=== PATIENT | male | born 1950 | race Caucasian/White ===

== ENCOUNTER 2022-07-18 09:42 | Observation (INO) | payer BC, SELFPAY ==
[2022-07-18] VITALS (12 sets, daily range): BP systolic 107–138; BP diastolic 53–77; PULSE 63–112; RESP 16–18; TEMP 36.2–37.1; O2SAT 97–99; BMI 31.2
--- NOTE | ~2022-07-18 | US_ITS ---
EXAMINATION: US abdomen limited DATE: 07/18/2022 17:09 INDICATION: Cirrhosis and elevated lipase TECHNIQUE: Multiple grayscale and Doppler ultrasound images of the abdomen were obtained. COMPARISON: CT dated 07/18/2022 FINDINGS: The pancreatic head and body are normal in appearance. The pancreatic tail is not visualized. There is increased hepatic parenchymal echogenicity and coarsened echotexture consistent with mild diffuse hepatic steatosis. There is subtle liver surface nodularity consistent with cirrhosis. No liver lesio n identified. No intrahepatic biliary duct dilation suspected. Portal venous flow was seen in the he patopetal, normal direction and has normal Doppler waveform. There is dilation of the main portal vei n which measures up to 1.9 cm diameter consistent with portal venous hypertension. There is a small s hadowing stone along the dependent wall of the normal-appearing gallbladder. Sonographic Renteria sign was reported as negative by the die repairer forging.Common bile duct measures 3 mm maximal diameter which is within normal limits. Visualized inferior vena cava is normal. Visualized portion of the right kidney demonstrates normal echogenicity and contour with no hydronephrosis. IMPRESSION: 1. Cirrhosis and mild diffuse hepatic steatosis with portal venous hypertension. 2. Cholelithiasis with no acute cholecystitis or biliary ductal dilation. Reviewed, dictated and finalized at location A. E SPLITTING SUPERVISOR IMPRESSION: 1. Cirrhosis and mild diffuse hepatic steatosis with portal venous hypertension . 2. Cholelithiasis with no acute cholecystitis or biliary ductal dilation.
--- NOTE | ~2022-07-18 | CT_ITS ---
EXAMINATION: CT abdomen pelvis w con INDICATION: Generalized abdominal pain TECHNIQUE: Computed tomographic images of the abdomen and pelvis were obtained after the administrati on of 100 cc of Omnipaque 350 intravenous contrast. The dose-length product (DLP) was 1096.66 mGy-cm. Automated exposure control and iterative reconstruction technique were employed. COMPARISON: None FINDINGS: Minimal dependent atelectasis is present in the lung bases. The heart size is normal. There is nodularity of the liver surface. Punctate calcifications in an otherwise normal spleen likely rep resent healed granulomatous disease. The pancreas and adrenal glands are normal. Stones are present i n the nondistended gallbladder. The right kidney is unremarkable. There are nonobstructing stones of the left kidney measuring up to 5 mm. No pathologically enlarged abdominal or pelvic lymph nodes are identified. No free intraperitoneal gas or evidence of bowel obstruction. The appendix is normal. IMPRESSION: 1. No CT correlate for the patient's symptoms. 2. Cholelithiasis without evidence of cholecystitis. 3. Nonobstructing left nephrolithiasis. 4. Cirrhosis. Reviewed, dictated and finalized at location B. SPLICER
[2022-07-18 10:16] LABS: Basophils Absolute Auto 0.1 K/mm3 (0.0-0.1); Basophils Percent Auto 0.7 % (0.2-1.2); Eosinophils Absolute Auto 0.2 K/mm3 (0-0.3); Eosinophils Percent Auto 2.2 % (0-4.4); Hematocrit 43.2 % (42.0-52.0); Immature Granulocyte Absolute 0.13 K/mm3 (0.00-0.031); Immature Granulocyte Percent A 1.8 % (0-0.5); Lymphocytes Absolute Auto 1.06 K/mm3 (0.9-3.2); Lymphocytes Percent Auto 14.4 % (18.3-44.2); Mean Corpuscular HGB Conc 34.7 g/dl (32-36); Mean Corpuscular Hemoglobin 29.3 pg (26-34); Mean Corpuscular Volume 84.4 fl (80-100); Mean Platelet Volume 9.2 fl (7.4-10.4); Monocytes Absolute Auto 0.7 K/mm3 (0.1-0.6); Monocytes Percent Auto 9.5 % (2.6-8.5); Neutrophils Absolute Auto 5.3 K/mm3 (1.3-6.7); Neutrophils Percent Auto 71.4 % (45.5-73.1); Platelet Count Result 225 k/mm3 (150-375); Red Blood Count 5.12 M/mm3 (4.6-6.20); Red Cell Distribution Width 13.5 % (11.5-14.5); White Blood Count 7.4 K/mm3 (4.5-10.0)
[2022-07-18] MEDS: SODIUM CHLORIDE 0.9% IV 1,000 ML 999 ML IV CONT (10:28)
[2022-07-18 10:29] LABS: INR 1.3; Prothrombin Time 15.8 Seconds (11.1-14.7)
[2022-07-18 10:30] LABS: Partial Thromboplastin Time 43.4 SECONDS (22.3-36.8)
--- NOTE | 2022-07-18 10:33 | ECG_ITS ---
Measurements Intervals [place] Rate: 109 P: -77 [place]: 65 QRS: -58 QRSD: 161 T: 111 QT: 395 QTc: 534 Interpretive Statements ELECTRONIC VENTRICULAR PACEMAKER ABNORMAL RHYTHM ECG NO PREVIOUS ECG AVAILABLE FOR COMPARISON Electronically Signed On 07-18-2022 16:15:14 COMMUNITY SERVICE AIDE by Mary Ho M.D.
--- NOTE | 2022-07-18 10:33 | ED.GENADULT ---
HPI - General Adult General Chief complaint: Nausea/Vomiting/Diarrhea Stated complaint: Diarrhea x1 week Time Seen by Provider: 07/18/22 09:50 Source: RN notes reviewed History of Present Illness HPI narrative: Patient presents emergency room from home for diarrhea. Patient states symptoms began approximately 1 week ago. She has been having numerous episodes of diarrhea a day. States that diarrhea will be associated with abdominal cramping but denies any abdominal pain at this time he does note mild associated nausea that is intermittent he also states has been having dizziness is worse when he tries to get up and ambulate states that he will feel dizzy and feel like he may pass out but states he has not fully passed out he denies having fevers or chills chest pain shortness of breath numbness or tingling of the extremities unilateral weakness or any other symptoms Related Data Home Medications Medication Instructions Recorded Confirmed amlodipine 5 mg tablet 5 mg PO DAILY 07/31/19 05/02/22 celecoxib 200 mg capsule 200 mg PO DAILY 07/31/19 05/02/22 empagliflozin 25 mg tablet 25 mg PO DAILY 07/31/19 05/02/22 (Jardiance) nebivolol 5 mg tablet (Bystolic) 5 mg PO DAILY 07/31/19 05/02/22 olmesartan 20 mg tablet 20 mg PO DAILY 07/31/19 05/02/22 omeprazole 20 mg capsule,delayed 20 mg PO DAILY 07/31/19 05/02/22 release pravastatin 80 mg tablet 80 mg PO DAILY 07/31/19 05/02/22 sertraline 50 mg tablet 50 mg PO DAILY 07/31/19 05/02/22 triamterene 37.5 1 cap PO DAILY 07/31/19 05/02/22 mg-hydrochlorothiazide 25 mg capsule apixaban 2.5 mg tablet (Eliquis) 2.5 mg PO BID 08/26/20 05/02/22 dulaglutide 1.5 mg/0.5 mL 1.5 mg subcut WEEKLY 08/30/21 05/02/22 subcutaneous pen injector (Trulicity) metformin 850 mg tablet 425 mg PO DAILY 08/30/21 05/02/22 Allergies Allergy/AdvReac Type Severity Reaction Status Date / Time latex Allergy Intermediate itch/rash Verified 05/02/22 13:37 Review of Systems Review of Systems: Gen.: Denies fevers or chills Eyes: Denies eye pain or visual change ENT: Denies congestion Respiratory: Denies shortness of breath or cough CV: Denies chest pain GI: See HPI denies burning, urgency, frequency or hematuria Musculoskeletal: Denies back pain or muscle pain Neuro: reports dizziness worse with standing , and syncope Except as documented, all other systems reviewed and negative [facility] Past Medical History Medical History Body mass index (bmi) 33.0-33.9, adult (01/15/19) Chronic pain of right knee NIK (obstructive sleep apnea) Other chronic pain Primary osteoarthritis of right knee Surgical History Surgical History Presence of right artificial knee joint Family History Family History Other Diabetes mellitus Family history of arthritis Hypertension Social History Social History Smoking status: Never smoker Alcohol intake: current Exam Narrative: APPEARANCE: No acute distress, nontoxic, resting in bed EYES: PERRL HEENT: Normocephalic, atraumatic, oral mucosa dry RESPIRATORY: No respiratory distress Clear to auscultation bilaterally with no rhonchi wheezing or rales. CARDIOVASCULAR: Regular rate and rhythm without murmurs rubs or gallops. ABDOMINAL: Soft, nontender, nondistended, no rebound or guarding MUSCULOSKELETAl: Moves all extremities. No clubbing, cyanosis or edema. NEURO: Awake and alert x 4. Following commands, speech normal, no focal deficits SKIN:: Warm, dry. No rashes lesions or abrasions PSYCHIATRIC: Normal affect/mood, Course Course Emergency Course: Called and discussed with MARII العلي for Dr. Walker presentation and work-up agrees with admission the hospital service Discussed with patient and family results of workup and diagnosis.
[2022-07-18 10:35] LABS: Alanine Aminotransferase 25 U/L (6-50); Albumin Level 4.4 g/dL (3.5-5.1); Alkaline Phosphatase 85 U/L (38-126); Anion Gap 10 mmol/L (8-16); Aspartate Amino Transferase 27 U/L (17-59); Bilirubin,Total 0.4 mg/dL (0.2-1.3); Blood Urea Nitrogen 33 mg/dL (9-20); Carbon Dioxide 18 mmol/L (22-30); Chloride 104 mmol/L (98-107); Estimated CRCL calculation 79 ml/min; Estimated Glomerular Filt Rate > 60; Glucose 289 mg/dL (65-110); Lipase 1237 U/L (23-300); Magnesium 2.3 mg/dL (1.6-2.3); Potassium 3.6 mmol/L (3.4-5.0); Sodium 132 mmol/L (137-145)
[2022-07-18 10:50] LABS: Influenza A QL RT-PCR Negative (Negative); Influenza B QL RT-PCR Negative (Negative); SARS-CoV-2 RNA PCR Negative
[2022-07-18 11:30] LABS: Appearance Urine Clear (Clear); Bilirubin Urine Negative (Negative); Blood Urine Negative (Negative); Color Urine Yellow (Yellow); Glucose Urine UA 3+ mg/dL (Negative); Ketones Urine Negative (Negative); Leukocyte Esterase Ur Negative LEU/UL (Negative); Nitrate Urine Negative (Negative); Protein Urine Negative (Negative); Urobilinogen Urine 0.2 mg/dL (<2.0)
[2022-07-18 11:38] LABS: Mucus Urine Rare /lpf; RBC Urine 0-2 /hpf (0-2); WBC Urine 0-3 /hpf
[2022-07-18 11:47] LABS: Add Urine Microscopic? YES
[2022-07-18] MEDS: SODIUM CHLORIDE 0.9% IV 1,000 ML 100 ML IV CONT (13:06)
--- NOTE | 2022-07-18 15:00 | PM.IMHP ---
H&P: HPI History of Present Illness Date/Time: 07/18/22 15:00 Chief Complaint: Diarrhea. Narrative: This is a very pleasant 71-year-old male with paroxysmal atrial fibrillation, hypertension, dyslipidemia, type 2 diabetes mellitus, obstructive sleep apnea, fatty liver disease, and GERD who presented to the ED from home for evaluation of diarrhea. Patient provides the following history. He reports watery, nonbloody diarrhea for the last 10 days and notes that his stools were too numerous to count for the 1st week or so. The diarrhea has slowed down to 4 to 5 episodes a day since since he started taking Pepto-Bismol. In addition to the diarrhea he has had diffuse abdominal cramping, bloating, nausea, and chills. He has lost 15 lb since the symptoms started. His oral intake was poor for a week and he reports that he was extremely dehydrated; daughter reported tenting of the skin on exam. He has been trying to push the Gatorade though and he thinks he is feeling better in that regard. He has been having issues with lightheadedness and dizziness upon standing but that has improved with hydration. Initially he thought the diarrhea was due to the fact that he had ice cream around the time his symptoms started (he reports a lactose allergy and states he had not had dairy for almost a year prior to that night). However his symptoms have persisted. He has not had a documented fever. He denies recent travel, sick contacts, antibiotic use. No recent change in medications. He is not on stool softeners or laxatives at home. Vital signs were stable on arrival to the ED. Labs were significant for a normal WBC, sodium 132, potassium 3.6, carbon dioxide 18, BUN 33, lipase 1237. CT of the abdomen pelvis showed no CT correlate for the patient's symptoms. Review of Systems Review of Systems: Twelve systems were reviewed and are negative except for as per HPI. [facility] Past Medical History Medical History (Updated 07/18/22 @ 21:18 by Zohra Martins PA-C) Cholelithiasis Chronic anticoagulation Dyslipidemia Gastroesophageal reflux disease Hypertension Nonalcoholic fatty liver disease Obstructive sleep apnea on CPAP Osteoarthritis Paroxysmal atrial fibrillation Type 2 diabetes mellitus Surgical History Surgical History (Updated 07/18/22 @ 14:45 by Zohra Martins PA-C) History of arthroplasty of right knee History of arthroscopy of right knee History of colonoscopy with polypectomy History of permanent cardiac pacemaker placement Family History Family History (Updated 07/18/22 @ 14:46 by Zohra Martins PA-C) Other Congestive heart failure Dementia Diabetes mellitus Heart disease Hypertension Social History Social History (Updated 07/18/22 @ 21:18 by Zohra Martins PA-C) Social History: Surrogate medical decision maker: Tonja Palma, spouse. Code status: Full code. Smoking status: Never smoker Alcohol intake: former Substance use: never Lack of Transportation: No Lack of Food: Never True Current Housing: I Have Housing Concerned About Future Housing: No Difficulty Paying Gas/Electric Bills: No Difficulty Paying for Meds: No Currently Unemployed: No Education: Master's Degree or Higher Difficulty w/ Childcare or Family Care: No Additional living arrangements comments: Lives with spouse in [place]. A daughter and grand children are currently living with them. Additional occupation/education comments: Continues to work full-time in insurance. Spiritual care concerns: No Meds Home Medications and Allergies Home Medications Medication Instructions Recorded Confirmed Type amlodipine 5 mg tablet 10 mg PO DAILY 07/31/19 07/18/22 History celecoxib 200 mg capsule 200 mg PO DAILY 07/31/19 07/18/22 History empagliflozin 25 mg tablet 25 mg PO DAILY 07/31/19 07/18/22 History (Jardiance) nebivolol 5 mg tablet (Bystolic) 5 mg PO BID 07/31/19 07/18/22 History olmesartan 20 mg tablet
--- NOTE | 2022-07-18 15:05 | PC.NURSE ---
This patient, Tayo Palma, was admitted to [facility] Surg Room 314-01. Patient/family oriented to hospital policies and general routines including ID bracelet, bed and alarms, visiting hours, pain management, procedures, bathroom and other care routines, personal items, smoking policy, room service/diet, and visiting hours. Information on how to activate the Rapid Response Team has been discussed. Patient/Family are encouraged to report perceived risks to care and to ask questions if they do not understand what they are told or what they should do.
[2022-07-18 15:51] LABS: Hemoglobin A1C 7.5 % (<5.7)
[2022-07-18 17:02] LABS: Glucose Point of Care 156 mg/dl (65-105)
[2022-07-18 18:59] LABS: Toxigenic C. Diff NEGATIVE (NEGATIVE)
[2022-07-18 21:14] LABS: Creatine Kinase 81 U/L (55-170)
[2022-07-18] MEDS: APIXABAN 5 MG TABLET BY MOUTH (22:11)
[2022-07-18 23:00] LABS: Glucose Point of Care 204 mg/dl (65-105)
[2022-07-19 00:28] VITALS: PULSE 68; O2SAT 97
[2022-07-19 00:29] VITALS: O2SAT 97
[2022-07-19 03:43] VITALS: BP 137/53; PULSE 60; RESP 17; TEMP 36.5; O2SAT 99
[2022-07-19 04:45] VITALS: PULSE 67; O2SAT 99
[2022-07-19 06:17] LABS: Basophils Absolute Auto 0.1 K/mm3 (0.0-0.1); Basophils Percent Auto 0.8 % (0.2-1.2); Eosinophils Absolute Auto 0.2 K/mm3 (0-0.3); Eosinophils Percent Auto 2.1 % (0-4.4); Hematocrit 41.9 % (42.0-52.0); Hemoglobin 14.5 g/dL (14.0-18.0); Immature Granulocyte Absolute 0.17 K/mm3 (0.00-0.031); Lymphocytes Absolute Auto 1.48 K/mm3 (0.9-3.2); Lymphocytes Percent Auto 17.3 % (18.3-44.2); Mean Corpuscular HGB Conc 34.6 g/dl (32-36); Mean Corpuscular Hemoglobin 29.8 pg (26-34); Mean Corpuscular Volume 86.2 fl (80-100); Mean Platelet Volume 9.1 fl (7.4-10.4); Monocytes Absolute Auto 0.8 K/mm3 (0.1-0.6); Neutrophils Absolute Auto 5.9 K/mm3 (1.3-6.7); Neutrophils Percent Auto 68.8 % (45.5-73.1); Platelet Count Result 214 k/mm3 (150-375); Red Blood Count 4.86 M/mm3 (4.6-6.20); Red Cell Distribution Width 13.3 % (11.5-14.5); White Blood Count 8.5 K/mm3 (4.5-10.0)
[2022-07-19 06:37] LABS: Lipase 676 U/L (23-300)
[2022-07-19 06:38] LABS: INR 1.2; Prothrombin Time 15.1 Seconds (11.1-14.7)
[2022-07-19 06:39] LABS: Partial Thromboplastin Time 42.7 SECONDS (22.3-36.8)
[2022-07-19 06:51] LABS: Alanine Aminotransferase 24 U/L (6-50); Albumin Level 4.2 g/dL (3.5-5.1); Alkaline Phosphatase 79 U/L (38-126); Anion Gap 9 mmol/L (8-16); Aspartate Amino Transferase 24 U/L (17-59); Bilirubin,Total 0.6 mg/dL (0.2-1.3); Blood Urea Nitrogen 21 mg/dL (9-20); Calcium 8.8 mg/dL (8.4-10.2); Carbon Dioxide 21 mmol/L (22-30); Chloride 105 mmol/L (98-107); Estimated CRCL calculation 88 ml/min; Estimated Glomerular Filt Rate > 60; Glucose 173 mg/dL (65-110); Potassium 3.3 mmol/L (3.4-5.0); Sodium 135 mmol/L (137-145)
[2022-07-19 08:00] VITALS: PULSE 61; RESP 16; O2SAT 97
[2022-07-19 09:08] LABS: Glucose Point of Care 199 mg/dl (65-105)
--- NOTE | 2022-07-19 09:24 | PM.IMPN ---
Progress Note: A&P Assessment and Plan (1) Diarrhea: Code(s): R19.7 - Diarrhea, unspecified Status: Acute (2) Dehydration: Code(s): E86.0 - Dehydration Status: Acute (3) Type 2 diabetes mellitus: Code(s): E11.9 - Type 2 diabetes mellitus without complications Status: Acute (4) Elevated lipase: Code(s): R74.8 - Abnormal levels of other serum enzymes Status: Acute (5) Hypertension: Code(s): I10 - Essential (primary) hypertension Status: Acute (6) Obstructive sleep apnea on CPAP: Code(s): G47.33 - Obstructive sleep apnea (adult) (pediatric); Z99.89 - Dependence on other enabling machines and devices Status: Acute (7) Paroxysmal atrial fibrillation: Code(s): I48.0 - Paroxysmal atrial fibrillation Status: Acute (8) Chronic anticoagulation: Code(s): Z79.01 - senior care (current) use of anticoagulants Status: Acute (9) Dyslipidemia: Code(s): E78.5 - Hyperlipidemia, unspecified Status: Acute (10) Cholelithiasis: Code(s): K80.20 - Calculus of gallbladder without cholecystitis without obstruction Status: Acute Subjective Date/time seen: 07/19/22 09:24 Interval history: Patient is a 71-year-old male with paroxysmal atrial fibrillation on Eliquis, hypertension, dyslipidemia, type 2 diabetes mellitus, obstructive sleep apnea, fatty liver disease, and GERD who presented to the ED from home for evaluation of persistent watery, nonbloody diarrhea for the last 10 days prior to admission. He was admitted for further evaluation and management. Exam Narrative: General: Nontoxic-appearing male in the semi-Singh position in bed. Weight: 98.9 kg. BMI: 31.3. HEENT: Wearing corrective lenses. PERRL, EOMI. Sclera anicteric. Tacky mucous membranes. Neck: Supple. Respiratory: Lungs are clear to auscultation bilaterally. Cardiovascular: Regular rate and rhythm with S1-S2. Gastrointestinal: Abdomen is soft, nontender, and nondistended with positive bowel sounds. No guarding or rebound tenderness. Skin: Warm and dry. No rash or lesions on limited exam. Extremities: No cyanosis, clubbing, or edema. Radial and pedal pulses intact. Neurological: Alert. Cranial nerves 2-12 are grossly intact. No gross focal deficits to casual conversation. Psychiatric: Pleasant and cooperative with normal mood and affect. Judgment and insight intact. Objective Data Vital Signs Vital Signs: Vital Signs - 24 hr 07/18/22 09:45 07/18/22 11:39 07/18/22 11:39 Temperature 98.7 F Pulse Rate 66 65 112 H Respiratory Rate 16 Blood Pressure 126/56 L 123/66 124/77 Pulse Oximetry 98 Oxygen Delivery Room Air Fraction of Inspired Oxygen 07/18/22 11:41 07/18/22 10:31 07/18/22 11:31 Temperature Pulse Rate 111 H 66 64 Respiratory Rate 16 16 Blood Pressure 131/69 123/58 L 122/74 Pulse Oximetry 97 97 Oxygen Delivery Fraction of Inspired Oxygen 07/18/22 14:08 07/18/22 13:16 07/18/22 14:30 Temperature 97.1 F L Pulse Rate 64 63 63 Respiratory Rate 18 16 16 Blood Pressure 122/66 107/53 L 130/62 Pulse Oximetry 97 97 99 Oxygen Delivery Fraction of Inspired Oxygen 07/18/22 19:34 07/18/22 19:38 07/18/22 19:39 Temperature 97.6 F 97.6 F Pulse Rate 68 65 Respiratory Rate 18 18 Blood Pressure 138/64 138/64 133/59 L Pulse Oximetry 98 98 Oxygen Delivery Fraction of Inspired Oxygen 07/18/22 20:00 07/19/22 00:28 07/19/22 00:29 Temperature Pulse Rate 65 68 Respiratory Rate 18 Blood Pressure Pulse Oximetry 98 97 97 Oxygen Delivery Room Air CPAP CPAP Fraction of Inspired Oxygen 21 07/19/22 03:43 07/19/22 04:45 07/19/22 08:00 Temperature 97.7 F Pulse Rate 60 67 61 Respiratory Rate 17 16 Blood Pressure 137/53 L Pulse Oximetry 99 99 97 Oxygen Delivery CPAP Room Air Fraction of Inspired Oxygen Intake/Output Intake/Output: Intake & Output
[2022-07-19] MEDS: APIXABAN 5 MG TABLET BY MOUTH (09:40)
[2022-07-19] MEDS: EMPAGLIFLOZIN 25 MG TABLET PO (09:40)
[2022-07-19] MEDS: THERAPEUTIC MULTIVITAMINS/MINERALS TAB (*BKC) 1 TABLET PO (09:40)
[2022-07-19] MEDS: OLMESARTAN MEDOXOMIL 20 MG TABLET PO (09:40)
[2022-07-19 09:41] VITALS: PULSE 64
[2022-07-19] MEDS: amLODIPine BESYLATE 5 MG TABLET 10 MG PO (09:41)
[2022-07-19] MEDS: NEBIVOLOL HCL 5 MG TABLET PO (09:41)
[2022-07-19] MEDS: POTASSIUM CHLORIDE 20 MEQ TABLET 60 MEQ PO (09:41)
[2022-07-19] MEDS: PRAVASTATIN SODIUM 20 MG TABLET 80 MG PO (09:42)
[2022-07-19] MEDS: CELECOXIB 200 MG CAPSULE PO (09:42)
[2022-07-19] MEDS: PANTOPRAZOLE 40 MG TABLET PO (09:42)
[2022-07-19] MEDS: SACCHAROMYCES BOULARDII 250 MG CAPSULE PO (12:10)
[2022-07-19 12:46] LABS: Glucose Point of Care 167 mg/dl (65-105)
--- NOTE | 2022-07-19 13:29 | PM.DS ---
DS: Admitting Diagnosis Discharge Date 07/19/2022 1330 Admitting Diagnosis Diarrhea Dehydration Type 2 diabetes mellitus, chronic Elevated lipase Hypertension, chronic Obstructive sleep apnea on CPAP Paroxysmal atrial fibrillation, chronic Chronic anticoagulation, chronic Dyslipidemia Cholelithiasis DS: Discharge Diagnosis Discharge Diagnosis (1) Diarrhea: Qualifiers: Diarrhea type: unspecified type Qualified Code(s): R19.7 - Diarrhea, unspecified Code(s): R19.7 - Diarrhea, unspecified Status: Acute (2) Dehydration: Code(s): E86.0 - Dehydration Status: Acute (3) Type 2 diabetes mellitus: Qualifiers: Diabetes mellitus extermination inspector insulin use: without extermination inspector use Code(s): E11.9 - Type 2 diabetes mellitus without complications Status: Chronic (4) Elevated lipase: Code(s): R74.8 - Abnormal levels of other serum enzymes Status: Acute (5) Hypertension: Qualifiers: Hypertension type: primary hypertension Qualified Code(s): I10 - Essential (primary) hypertension Code(s): I10 - Essential (primary) hypertension Status: Chronic (6) Obstructive sleep apnea on CPAP: Code(s): G47.33 - Obstructive sleep apnea (adult) (pediatric); Z99.89 - Dependence on other enabling machines and devices Status: Chronic (7) Paroxysmal atrial fibrillation: Code(s): I48.0 - Paroxysmal atrial fibrillation Status: Chronic (8) Chronic anticoagulation: Code(s): Z79.01 - ocean transportation intermediary (current) use of anticoagulants Status: Chronic (9) Dyslipidemia: Code(s): E78.5 - Hyperlipidemia, unspecified Status: Chronic (10) Cholelithiasis: Qualifiers: Cholelithiasis location: gallbladder Cholecystitis presence: without cholecystitis Biliary obstruction: without biliary obstruction Qualified Code(s): K80.20 - Calculus of gallbladder without cholecystitis without obstruction Code(s): K80.20 - Calculus of gallbladder without cholecystitis without obstruction Status: Acute (11) Nonalcoholic fatty liver disease: Code(s): K76.0 - Fatty (change of) liver, not elsewhere classified Status: Acute (12) Obesity (BMI 30-39.9): Code(s): E66.9 - Obesity, unspecified Status: Acute DS: Summary Hospital Course Reason for hospitalization: Diarrhea Hospital Course: Tayo Palma is a 71-year-old male with paroxysmal atrial fibrillation, hypertension, dyslipidemia, type 2 diabetes mellitus, obstructive sleep apnea, fatty liver disease, and GERD who presented to the ED from home for evaluation of acute diarrhea x 10 days. He reports watery, nonbloody diarrhea and notes that his stools were too numerous to count for the 1st week or so. The diarrhea has slowed down to 4 to 5 episodes a day since he started taking Pepto-Bismol. In addition to the diarrhea he has had diffuse abdominal cramping, bloating, nausea, and chills. He has lost 15 lb since the symptoms started. His oral intake was poor for a week and he reported that he was extremely dehydrated; daughter reported tenting of the skin on exam. He has been trying to push the Gatorade. He reported lightheadedness and dizziness upon standing. Initially, he thought the diarrhea was due to the fact that he had ice cream around the time his symptoms started (he reports a lactose allergy and states he had not had dairy for almost a year prior to that night). However, symptoms have persisted. He denied fever, recent travel, sick contacts, or antibiotic use.? No recent change in medications. He is not on stool softeners or laxatives at home. Vital signs were stable on arrival to the ED. Labs were significant for a normal WBC, sodium 132, potassium 3.6, carbon dioxide 18, BUN 33, lipase 1237. CT of the abdomen pelvis showed no CT correlate for the patient's symptoms. He was admitted to the medical floor and treated with IV fluids. He was sascha
== END 2022-07-19 13:55 | disposition home or self-care (01) ==
LOC: ANHED 13:45 → ANH3MEDSUR 13:53
PROVIDERS: Physician Assistant; Admitting Provider Student in an Organized Health Care Education/Training Program; Emergency Provider Emergency Medicine; PCP Internal Medicine; Visit Provider Student in an Organized Health Care Education/Training Program
DX: R19.7 Diarrhea, unspecified (principal); E86.0 Dehydration; E11.9 Type 2 diabetes mellitus without complications; R74.8 Abnormal levels of other serum enzymes; I10 Essential (primary) hypertension; G47.33 Obstructive sleep apnea (adult) (pediatric); I48.0 Paroxysmal atrial fibrillation; E78.5 Hyperlipidemia, unspecified; K80.20 Calculus of gallbladder without cholecystitis without obstruction; K76.0 Fatty (change of) liver, not elsewhere classified; E66.9 Obesity, unspecified; R42 Dizziness and giddiness; Z20.822 Contact with and (suspected) exposure to COVID-19; Z95.0 Presence of cardiac pacemaker; K21.9 Gastro-esophageal reflux disease without esophagitis; N20.0 Calculus of kidney; R63.4 Abnormal weight loss; Z68.31 Body mass index [BMI] 31.0-31.9, adult; K74.60 Unspecified cirrhosis of liver; M17.9 Osteoarthritis of knee, unspecified; R94.31 Abnormal electrocardiogram [ECG] [EKG]; F10.90 Alcohol use, unspecified, uncomplicated; Z79.01 Long term (current) use of anticoagulants; Z79.85 Long-term (current) use of injectable non-insulin antidiabetic drugs; Z79.84 Long term (current) use of oral hypoglycemic drugs; Z79.899 Other long term (current) drug therapy; Z83.3 Family history of diabetes mellitus; Z82.49 Family history of ischemic heart disease and other diseases of the circulatory system
CPT/HCPCS: 36415; 74177; 76705; 80053; 81001; 82550; 82948; 83036; 83690; 83735; 84443; 85025; 85610; 85730; 87045; 87269; 87272; 87427; 87493; 87636; 93005; 96360; 99285; A9270; G0378; J7030; Q9967